=== PATIENT | male | born 1990 | race Caucasian/White ===

== ENCOUNTER 2017-07-15 11:56 | Emergency (ER) | payer MEDICAID, OTHER ==
[2017-07-15 12:30] VITALS: BP 128/89; PULSE 114; TEMP 98.6; O2SAT 92
[2017-07-15] MEDS ORDERED: OLANZapine DISINTEGR 5 MG TAB PO ONE (12:33)
--- NOTE | 2017-07-15 12:35 | EDPHY ---
H & P Stated Complaint: HEARING VOICES. WAS AT REHAB BUT WENT AMA Source: Patient, Family - Personal History Current Tetanus/Diphtheria Vaccine: Yes Current Tetanus Diphtheria and Acellular Pertussis (TDAP): Yes - Medical/Surgical History Hx Diabetes: No Other PMH: Schizoaffective, alcohol abuse - Social History Smoking Status: Current every day smoker Time Seen by Provider: 07/15/17 12:20 HPI/ROS: CHIEF COMPLAINT: Hearing voices HISTORY OF PRESENT ILLNESS: The patient has a history of schizoaffective disorder. The patient also has a history of alcohol abuse. He was hospitalized in [place] at a dual diagnosis facility earlier this year. He is been back in [place] for 1 week. The patient reportedly was having auditory command hallucinations which told him to quit his job. The patient had been prescribed Seroquel which he has not taking. The patient does report marijuana alcohol use. He denies suicidal or homicidal ideation. REVIEW OF SYSTEMS: A comprehensive 10 point review of systems is otherwise negative aside from elements mentioned in the history of present illness. (Jaren Felix) - Physical Exam Exam: General Appearance: Alert, no distress Eyes: Pupils equal and round no pallor or injection ENT, Mouth: Mucous membranes moist Respiratory: There are no retractions, lungs are clear to auscultation Cardiovascular: Regular rate and rhythm Gastrointestinal: Abdomen is soft and nontender, no masses, bowel sounds normal Neurological: Alert and oriented x4, 5/5 strength all 4 extremities, cranial nerves 2-12 intact Skin: Warm and dry, no rashes Musculoskeletal: Neck is supple nontender Extremities: symmetrical, full range of motion Psychiatric: Patient is oriented X 3, there is no agitation, endorses auditory hallucinations, denies suicidal ideation (Jaren Felix) Constitutional: Initial Vital Signs Temperature (C) 37.0 C 07/15/17 12:04 Heart Rate 114 H 07/15/17 12:04 Blood Pressure 128/89 H 07/15/17 12:04 O2 Sat (%) 92 07/15/17 12:04 O2 Delivery Mode Room Air Allergies/Adverse Reactions: No Known Allergies Allergy (Unverified 09/08/15 16:15) Home Medications: Medication Instructions Recorded Unobtainable 07/15/17 Medical Decision Making ED Course/Re-evaluation: The patient presents to the ED for evaluation of auditory hallucinations. He has a history of schizoaffective disorder and substance abuse. The patient does contract for safety. He was given some Zyprexa orally in the emergency department. He had previously been prescribed Seroquel which he has not taken. The patient has been medically cleared for psychiatric evaluation which is pending as of 3:00 p.m.. He will be turned over to Dr. Suellen Mireles at shift change. (Jaren Felix) 1500: Patient is signed out to me at change of shift. The patient has a psychiatric evaluation. They felt the patient is safe for discharge. They around a patient follow-up. Patient was given follow-up and given warnings prior to leaving. (Suellen Mireles) Differential Diagnosis: Differential diagnosis considered includes psychosis, schizophrenia, bipolar mood disorder, intoxication (Jaren Felix) - Data Points Laboratory Results: Laboratory Results 07/15/17 13:05 07/15/17 13:05 07/15/17 07/15/17 07/15/17 13:05 13:05 13:05 WBC 4.88 10^3/uL 10^3/uL (3.80-9.50) RBC 4.74 10^6/uL 10^6/uL (4.40-6.38) Hgb 16.0 g/dL g/dL (13.7-17.5) Hct 44.5 % % (40.0-51.0) MCV 93.9 fL fL (81.5-99.8) MCH 33.8 pg pg (27.9-34.1) MCHC 36.0 g/dL g/dL (32.4-36.7) RDW 11.2 % L % (11.5-15.2) Plt Count 311 10^3/uL 10^3/uL (150-400) MPV 8.7 fL fL (8.7-11.7) Neut % (Auto) 34.6 % L % (39.3-74.2) Lymph % (Auto) 49.6 % H % (15.0-45.0) [place] % (Auto) 10.7 % % (4.5-13.0) Eos % (Auto) 3.1 % % (0.6-7.6) Baso % (Auto) 1.8 % H % (0.3-1.7) Nucleat RBC Rel Count 0.0 % % (0.0-0.2) Absolute Neuts (auto) 1.69 10^3/uL L 10^3/uL (1.70-6.50) Absolute Lymphs (auto) 2.42 10^3/uL 10^3/uL (1.00-3.00) Absolute Monos (auto) 0.52 10^3/uL 10^3/uL (0.30-0.80) Absolute Eos (auto) 0.15 10^3/uL 10^3/uL (0.03-0.40) Absolute Basos (auto) 0.09 10^3/uL 10^3/uL (0.02-0.10) Absolute Nucleated RBC 0.00 10^3/uL 10^3/uL (0-0.01) Immature Gran % 0.2 % % (0.0-1.1) Immature Gran # 0.01 10^3/uL 10^3/uL (0.00-0.10) Sodium 145 mEq/L mEq/L (135-145) Potassium 4.6 mEq/L mEq/L (3.5-5.2) Chloride 106 mEq/L mEq/L (97-110) Carbon Dioxide 24 mEq/l mEq/l (22-31) Anion Gap 15 mEq/L mEq/L (8-16) BUN 7 mg/dL mg/dL (7-23) Creatinine 0.9 mg/dL mg/dL (0.7-1.3) Estimated GFR > 60 Glucose 92 mg/dL mg/dL (70-100) Calcium 9.8 mg/dL mg/dL (8.5-10.4) Urine Opiates Screen NEGATIVE (NEGATIVE) Urine Barbiturates NEGATIVE (NEGATIVE) Ur Phencyclidine Scrn NEGATIVE (NEGATIVE) Ur Amphetamine Screen NEGATIVE (NEGATIVE) U Benzodiazepines Scrn NEGATIVE (NEGATIVE) Urine Cocaine Screen NEGATIVE (NEGATIVE) U Marijuana (THC) Screen NEGATIVE (NEGATIVE) Ethyl Alcohol 136 mg/dL H mg/dL (0-10) Medications Given: Discontinued Medications Olanzapine (Zyprexa Zydis) 5 mg PO EDNOW ONE Stop: 07/15/17 12:34 Last Admin: 07/15/17 13:22 Dose: 5 mg Departure - Departure Disposition: Home, Routine, Self-Care Clinical Impression: Schizoaffective disorder Qualifiers: Schizoaffective disorder type: unspecified Qualified Code(s): F25.9 - Schizoaffective disorder, unspecified Condition: Good Instructions: Schizoaffective Disorder (ED) Additional Instructions: Return with worsening symptoms or any other concerns. Follow up as directed by your pipeline dispatch operator. Referrals: Angie Wood MD [Medical Doctor] - 5-7 days, if not improved
[2017-07-15 13:14] LABS: PLATELET COUNT 311 10^3/uL (150-400)
== END 2017-07-15 16:22 | disposition home or self-care (01) ==
DX: F25.9 Schizoaffective disorder, unspecified (principal); F17.200 Nicotine dependence, unspecified, uncomplicated
CPT/HCPCS: 80305; G0480

== ENCOUNTER 2018-07-03 12:56 | Emergency (ER) | payer MEDICAID, OTHER ==
[2018-07-03 14:14] VITALS: BP 130/83
--- NOTE | 2018-07-03 14:33 | EDPHY ---
H & P Stated Complaint: ETOH OPIATE ABUSE Time Seen by Provider: 07/03/18 14:22 HPI/ROS: CHIEF COMPLAINT: Concern about opiate withdrawal HISTORY OF PRESENT ILLNESS: 28-year-old male with schizophrenia presents with a concern about opiate withdrawal. He has been smoking opium daily for the past 4 months. Last used opium at 3:00 a.m.. Concern for opiate withdrawal, as he intends to stop using opium. In the past, he has been through opiate withdrawal. Symptoms have mainly been excessive fatigue and diarrhea. Asymptomatic currently. He has an appointment at [facility] on Tuesday. REVIEW OF SYSTEMS: complete 10 point ROS reviewed and is negative except for the noted elements in the HPI - Personal History Current Tetanus Diphtheria and Acellular Pertussis (TDAP): Yes - Medical/Surgical History Hx Asthma: No Hx Chronic Respiratory Disease: No Hx Diabetes: No Hx Cardiac Disease: No Hx Renal Disease: No Hx Cirrhosis: No Hx Alcoholism: No Hx HIV/AIDS: No Hx Splenectomy or Spleen Trauma: No Other PMH: Schizoaffective, alcohol abuse OPIATE ABUSE - Social History Smoking Status: Current every day smoker Drug Use: Other (opium) - Physical Exam Exam: General Appearance: Alert, pleasant Eyes: Pupils equal and round, no conjunctival pallor ENT, Mouth: Mucous membranes moist Neck: Normal inspection Respiratory: Lungs are clear to auscultation Cardiovascular: Regular rate and rhythm Gastrointestinal: Abdomen is soft and nontender Neurological: A&O, nonfocal, normal gait Skin: Warm and dry Extremities: Normal inspection Psychiatric: Mood and affect normal Constitutional: Initial Vital Signs Temperature (C) 36.4 C 07/03/18 13:01 Heart Rate 86 07/03/18 13:01 Respiratory Rate 17 07/03/18 13:01 Blood Pressure 115/73 07/03/18 13:01 O2 Sat (%) 95 07/03/18 13:01 O2 Delivery Mode Room Air Allergies/Adverse Reactions: No Known Allergies Allergy (Verified 07/03/18 12:59) Home Medications: Medication Instructions Recorded NK [No Known Home Meds] 07/03/18 Medical Decision Making ED Course/Re-evaluation: This patient presents with a concern for opiate withdrawal. He is not in withdrawal during my evaluation. I have encouraged him to follow up the arc. Departure - Departure Disposition: Home, Routine, Self-Care Clinical Impression: Opiate abuse, episodic Condition: Good Instructions: Opioid Withdrawal (ED), Opioid Use Disorder (ED) Referrals: [facility] [Outside] - As per Instructions Stand Alone Forms: Work Excuse
== END 2018-07-03 14:50 | disposition home or self-care (01) ==
DX: F11.23 Opioid dependence with withdrawal (principal); F20.89 Other schizophrenia; F17.200 Nicotine dependence, unspecified, uncomplicated

== ENCOUNTER 2018-09-25 21:17 | Emergency (ER) | payer MEDICAID ==
[2018-09-25] MEDS ORDERED: ONDANSETRON DISINTEGRATING 4 MG TAB PO ONE (22:15)
[2018-09-25] MEDS ORDERED: DIAZEPAM 5 MG TAB PO ONE (22:15)
[2018-09-25 22:19] VITALS: BP 140/94
--- NOTE | 2018-09-25 22:21 | EDPHY ---
H & P Time Seen by Provider: 09/25/18 21:41 HPI/ROS: HPI Heroin withdrawal. 28-year-old male by private vehicle with his father. The patient is seeking detox. He has been using heroin for the last several months. He tells me that his last use of heroin was 10-12 days ago. He presents to the emergency department with complaint of chills, sweats, nausea and vomiting. He reports that he drank 3-4 shots of vodka about 4 hr ago to help alleviate the symptoms but his nausea and vomiting were made worse. He is seeking detox. He and his father are willing to go to the [facility]. I explained that our hospital did not have a detox program for heroin withdrawal. He reports that he was seen in our emergency department savita and Yvette a couple of months ago with similar symptoms when he was trying to quit heroin and was given Ativan and felt a lot better after this medication. ROS: Constitutional: No fever, as above. Eyes: No discharge. No changes in vision. ENT: No sore throat. No nasal congestion or rhinorrhea. Respiratory: No cough. No shortness of breath. Cardiac: No chest pain, no palpitations. Gastrointestinal: No abdominal pain, as above, no diarrhea. Genitourinary: No hematuria. No dysuria or increased frequency with urination. Musculoskeletal: No back pain. No neck pain. No myalgias or arthralgias. Skin: No rashes. Neurological: No headache. No focal weakness or altered sensation. Past medical history: Schizoaffective disorder, alcohol abuse, heroin abuse. Social history: Nonsmoker. As above. He is here with his father. Physical Exam: General Appearance: Alert, does not appear in distress. This patient is responding to questions appropriately and in full sentences. This patient appears well-hydrated and well-nourished. Eyes: Pupils equal and round no pallor or injection. No lid edema, erythema or injection. Respiratory: There are no retractions, lungs are clear to auscultation with good air movement bilaterally. Cardiovascular: Regular rate and rhythm. No murmur. Gastrointestinal: Abdomen is soft and nontender, no masses, bowel sounds normal. No focal tenderness at McBurney's point. No Montel[place] sign. Neurological: Motor sensory function is grossly intact. Cranial nerves are normal. Gait is normal. Skin: Warm and dry, no rashes. Musculoskeletal: Neck is supple and nontender. Extremities are symmetrical. All joints range without pain or impingement. Psychiatric: No agitation. No depression. Database: EKG: Imaging: Procedures: Emergency department course: Triage vital signs reviewed. He is borderline tachycardic. Vital signs are otherwise normal. He is afebrile. Patient was given 10 mg of oral Valium and 4 mg of oral Zofran. 10:45 p.m., the patient was re-evaluated, resting comfortably at this time. He is feeling much better and more relaxed after above medications. We have contacted the [facility]. They will except this patient. The patient will be transported to the [facility] with his father driving him. The father and patient feel comfortable with this plan. Follow-up and return to emergency department precautions reviewed with the 2 of them. All of their questions were answered. The patient was discharged in good condition with his father. Differential Diagnosis: The differential diagnosis on this patient includes but is not limited to heroin withdrawal. Alcohol withdrawal, suicidal ideation, severe major depression unlikely. This represents a partial list of diagnoses considered. These considerations are based on history, physical exam, past history, reassessment and diagnostic testing. Smoking Status: Current every day smoker Constitutional: Initial Vital Signs Temperature (C) 36.9 C 09/25/18 21:31 Heart Rate 100 09/25/18 21:31 Respiratory Rate 16 09/25/18 21:31 Blood Pressure 133/102 H 09/25/18 21:31 O2 Sat (%) 97 09/25/18 21:31 O2 Delivery Mode Room Air Allergies/Adverse Reactions: No Known Allergies Allergy (Verified 07/03/18 12:59) Home Medications: Medication Instructions Recorded Clonidine 09/25/18 Medical Decision Making - Data Points Medications Given: Discontinued Medications Ondansetron HCl (Zofran Odt) 4 mg PO EDNOW ONE Stop: 09/25/18 22:16 Last Admin: 09/25/18 22:21 Dose: 4 mg Departure - Departure Disposition: Home, Routine, Self-Care Clinical Impression: Heroin withdrawal Condition: Good Instructions: Narcotic Withdrawal (ED) Additional Instructions: Read and follow provided instructions. Your father is to drive you to the [facility] as discussed. Return to the emergency department for worsening symptoms or other serious concerns. Referrals: [facility] [Outside] - As per Instructions
[2018-09-26] MEDS: CHLORDIAZEPOXIDE 25MG PREPK#6 BTL TAKEHOME ONE (00:19)
== END 2018-09-26 00:27 | disposition home or self-care (01) ==
DX: F11.23 Opioid dependence with withdrawal (principal); F25.9 Schizoaffective disorder, unspecified

== ENCOUNTER 2018-09-26 09:59 | Emergency (ER) | payer MEDICAID ==
[2018-09-26] MEDS ORDERED: NS 1,000 ML IV ONE ×2 (10:48→11:26)
[2018-09-26] MEDS ORDERED: LORazepam 2 MG/ML INJ IVP ONE (10:48)
[2018-09-26] MEDS ORDERED: ONDANSETRON 4 MG/2 ML VIAL IVP ONE (10:48)
--- NOTE | 2018-09-26 10:52 | EDPHY ---
General Time Seen by Provider: 09/26/18 10:23 Narrative: CLINICAL IMPRESSION: Heroin and alcohol abuse, nausea and vomiting ASSESSMENT/PLAN: 28-year-old male presents to the emergency department for the 2nd time in 24 hr complaining of nausea and vomiting. Patient admits to a long history of heroin abuse, last use being 12 days ago. He also abuses alcohol, last drink was at 5:00 p.m. Yesterday before he was seen in the emergency department. [facility] but tells me that he was not given Librium there because he would not urinate in a cup. ED RN called the [facility] and was told he did not receive Librium because he did not clinically appear to be going through withdrawals. Patient reports he vomited upwards of 20 times last night. He arrives with stable vital signs, no fever, tachycardia, tachypnea. He is very mildly tremulous and diaphoretic. Labs are without leukocytosis, significant renal insufficiency, severe dehydration or electrolyte imbalance. Abdomen is soft without focal peritoneal findings. I do not feel this patient requires emergent imaging study. He received 2 L of IV fluid with marked improvement in his symptoms along with a single dose of IV Ativan and antiemetics. They met with case management. He is declining detox and rehab services at this point. He wishes to go to work later today. He does not wish to go back to the [facility]. His father was present during the entire duration of his visit. Patient was provided multiple outpatient resources I advised to follow up with primary care. He is established with [facility]. He has a prescription for Klonopin which he uses for heroin withdrawal. Warning signs for return to ED sooner outlined and discharge. DIFFERENTIAL DX: Differential includes but not limited to, acute/chronic psychosis, severe depression, suicidal or homicidal ideations, grave disability, failure to thrive , medication noncompliance, medication side effect, alcohol intoxication and illicit drug use, metabolic disturbance, electrolyte imbalance ED PROCEDURES: See lab and/or imaging results below ED COURSE: 10:30 a.m.:. Patient seen and assessed by myself. Very mildly tremulous, appears dehydrated, complaining of abdominal pain although laying comfortably in the bed, vital signs stable 11:45 a.m.: Patient reassessed, states "I feel like a million dollars". Abdomen is soft without focal peritoneal findings. I do not believe this patient requires an emergent CT scan or ultrasound. Bonnie with case management to discuss outpatient detox programs with the patient and his father. 12:00 p.m.: Bonnie has met with the patient and family. Resources given. They are not currently interested in the [facility] nor the interested in rehab services at this point. Patient is feeling much better. Planning to go to work today at 4:30 a.m.. CHIEF COMPLAINT: Nausea, vomiting, abdominal pain HPI: 28-year-old male seen in our emergency department yesterday with a past medical history of schizoaffective disorder, noncompliant on meds, alcohol and heroin abuse, presents to the emergency department again with his father this morning complaining of nausea vomiting and abdominal pain. Patient received oral Valium and Zofran yesterday. He was accepted at the [facility]. Patient tells me he did not receive any Librium overnight because he did not "give a urine sample". However, patient reports he could not provide urine because he was nauseous and vomiting all night. ED RN contacted the [facility] and was told the patient did not receive Librium because he clinically "did not appear to be in withdrawal". Patient's last use of heroin was 12 days ago, he took several shots of vodka yesterday at 5:00 p.m. Before coming to the ED and has not had alcohol since that time. He reports persistent nausea and vomiting overnight with generalized abdominal pain. He believes he vomited at least 20 times. No reported hematemesis. No diarrhea. He is not interested in going to rehab. He does not wish to go back to the [facility]. He has clonidine prescribed by [facility] for heroin withdrawal and says he takes this once daily. No reports of fever or chills. PAST MEDICAL HISTORY: Schizoaffective disorder, nausea, vomiting See nurse/triage notes for additional history if applicable Pertinent Past Surgical History: None reported Family History: Noncontributory Social History: Abuses illicit drugs and alcohol, here with his father REVIEW OF SYSTEMS: All other systems negative Constitutional: No fever, no chills, positive for appetite change. Eyes: No discharge, vision change ENT: No sore throat, congestion, ear pain. Cardiovascular: No chest pain, no palpitations. Respiratory: No cough, no shortness of breath. Gastrointestinal: Positive for abdominal pain, positive for nausea and vomiting , diarrhea. Genitourinary: No hematuria, dysuria, flank pain, pelvic pain Musculoskeletal: No back pain, joint swelling, joint pain, myalgias. Skin: No rashes, color change. Neurological: No headache, dizziness, positive for weakness. PHYSICAL EXAM: General Appearance: Alert, oriented, appropriate, frail, chronically ill- appearing, sweating, cooperative, NAD, well hydrated, non-toxic appearing, VSS, no hypoxia. HEENT: Oropharynx clear is no erythema or exudates, no tonsillar hypertrophy or asymmetry. Dentition without abnormality. Eyes: PERRLA, no acute vision change, nystagmus, swelling, discharge, pain or photosensitivity. Conjunctiva pink, no pallor or injection Neck: Supple, nontender, no lymphadenopathy, no midline pain, FROM, no meningismus. Respiratory: There are no retractions, lungs are clear to auscultation. Cardiac: Regular rate and rhythm, no murmurs or gallops. Gastrointestinal: Abdomen is soft, generalized lower abdominal discomfort, bowel sounds normal, no masses/hernia, no rigidity, guarding or focal peritoneal findings. Neurological: [ Alert and oriented x 3 Skin: Warm, dry, no rashes, no nodules on palpation. MEDICAL DECISION MAKING: Patient was seen independently. Secondary supervising physician at time of evaluation was Dr. Beck. Diagnosis: Nausea and vomiting, history of heroin abuse and alcohol abuse . New , requires workup Summary: See Assessment and Plan for summary of ED visit Clinical lab tests: ordered / reviewed. Reviewed past ED chart notes, discussed with case management. Patient Progress: Stable for discharge. - History Smoking Status: Current every day smoker - Objective Vital Signs: Initial Vital Signs Temperature (C) 37.2 C 09/26/18 10:03 Heart Rate 94 09/26/18 10:03 Respiratory Rate 16 09/26/18 10:03 Blood Pressure 127/91 H 09/26/18 10:03 O2 Sat (%) 97 09/26/18 10:03 O2 Delivery Mode Room Air Allergies/Adverse Reactions: No Known Allergies Allergy (Verified 09/26/18 10:02) Home Medications: Medication Instructions Recorded Clonidine 09/25/18 Laboratory Results: Laboratory Results 09/26/18 10:51 09/26/18 10:51 Medications Given: Discontinued Medications Sodium Chloride (Ns) 1,000 mls @ 0 mls/hr IV EDNOW ONE; Wide Open PRN Reason: Protocol Stop: 09/26/18 10:49 Last Admin: 09/26/18 10:54 Dose: 1,000 mls Sodium Chloride (Ns) 1,000 mls @ 0 mls/hr IV EDNOW ONE; Wide Open PRN Reason: Protocol Stop: 09/26/18 11:27 Last Admin: 09/26/18 11:33 Dose: 1,000 mls Lorazepam (Ativan Injection) 1 mg IVP EDNOW ONE Stop: 09/26/18 10:49 Last Admin: 09/26/18 10:57 Dose: 1 mg Ondansetron HCl (Zofran) 4 mg IVP EDNOW ONE Stop: 09/26/18 10:49 Last Admin: 09/26/18 10:57 Dose: 4 mg Departure - Departure Disposition: Home, Routine, Self-Care Clinical Impression: Heroin abuse Condition: Good Instructions: Abuse of Alcohol (ED), Narcotic Use Disorder (ED) Additional Instructions: DISCHARGE INSTRUCTIONS FROM YOUR DOCTOR Thank you for visiting our emergency department today. You were treated by a physician trust manager assistant today and your case was reviewed with our ED Attending physician. Please keep in mind that discharge from the emergency department does not mean that there is nothing wrong - it simply means that we have not identified an emergency condition that requires further evaluation or treatment in the hospital. You should always plan to follow up with primary care for re- evaluation of your condition in the next 2-3 days. If you have been referred to a specialist, please call as soon as possible (today or tomorrow) to schedule your follow up appointment at the appropriate time. LABS ARE REASSURING, NO SIGNS OF SEVERE DEHYDRATION, PANCREATITIS, INFECTION, OR SIGNIFICANT ELECTROLYTE IMBALANCE. YOU MET WITH OUR COOK PIE WHO PROVIDED YOU WITH SOME RESOURCES FOR OUTPATIENT REHAB. YOU HAVE DECLINED TRANSPORT [facility]. PLEASE FOLLOW UP WITH [facility]. RETURN TO ER FOR WORSENING SYMPTOMS OR ANY OTHER CONCERNS. People present with illnesses and injuries in different ways, and it is always possible that we have missed something. You may always return for re-evaluation if symptoms worsen or if they are not improving or if you develop new/different symptoms. Again, thank you for choosing our emergency department. We hope that you feel better. Referrals: Farzana Batista NP [Primary Care Provider] - As per Instructions [facility] [Clinic] - 1-2 days without fail
[2018-09-26 11:02] LABS: PLATELET COUNT 293 10^3/uL (150-400)
[2018-09-26 13:20] VITALS: BP 124/72
--- NOTE | 2018-09-26 15:25 | ASMTCMCOM ---
CM Note CM Note Notes: Pt presented to the ED through triage with his father, Yomi, for heroin withdrawal. Pt was in the ED last night for heroin withdrawal and discharged to [facility] w/2 pre-pack bottles of Librium per [facility]'s request (see ED RN note 09/26/18 at 0015). Per ED provider pt states he has not used heroin or other opioids for the past 12 days. He presents to the ED today for same reason because he states [facility] didn't provide him any of the Librium and he states he has been vomiting all night. (See most recent ED Provider report for additional info.) This CM spoke w/pt and Ray at bedside re: pt's substance abuse and treatment options. Pt states he is not interested in going back to [facility] or any other rehab or treatment at this time. Per pt and Ray, pt has "been in and out of rehab throughout the [place] for the last 10+ years." Pt is followed by Dr Nguyễn at [facility] and prescribes pt w/clonidine for heroin w/d and also prescribes his medications for his schizoaffective disorder. Pt states he doesn't take the medications to treat his schizoaffective d/o because of the side effects. Pt states he then self medicates with ETOH, heroin, etc. when he is hearing voices. Pt states he has an appt on Friday 09/29 w/his PCP at [facility]. This CM provided pt a list of substance abuse treatment facilities and MAT programs that accept Medicaid, a [facility] pamphlet and the local liason's cards, and also the card for Abdulkadir Head, [facility]'s Substance Abuse Process Mold Technician and MAT Navigator. Pt states "yah I need to step up my game." CM asked Yomi how he is doing and if he is getting any additional help and support; Yomi stated "I get depressed. We have been doing this so long now and nothing changes. My sees someone to talk about it all and we've been through various support groups in the past but it is definitely depressing." This CM provided empathetic listening and support. CM also encouraged Yomi to reach out for additional support; CM provided Yomi w/ various local family support group info and also encouraged him to reach out to [facility] for counseling and emotional support. Ray states he will look into the resources and is appreciative of assistance. CM called and left a voicemail for [employer] Crew Supervisor at [facility], to discuss pt's followup needs. CM available for additional assistance if needed. Date Signed: 09/26/2018 03:25 PM Electronically Signed By:Bonnie Neal RN
== END 2018-09-26 13:19 | disposition home or self-care (01) ==
DX: F11.10 Opioid abuse, uncomplicated (principal); F10.20 Alcohol dependence, uncomplicated
CPT/HCPCS: 96374; J2060; J2405